=== PATIENT | female | born 1985 | race Caucasian/White ===

== ENCOUNTER 2016-08-19 16:47 | Emergency (ER) | payer BC ==
[2016-08-19 17:14] VITALS: BP 112/80
--- NOTE | 2016-08-19 17:32 | EDM.PDOC ---
ED HPI GENERAL MEDICAL PROBLEM - General Chief Complaint: Lower Extremity Injury/Pain Stated Complaint: INJURED RT LEG Time Seen by Provider: 08/19/16 16:58 Source of Information: Reports: Patient History Limitations: Reports: No Limitations - History of Present Illness INITIAL COMMENTS - FREE TEXT/NARRATIVE: The patient was climbing down an 8 foot high panel and missed one of the foot holds and fell down and landed on her right foot and ankle. She twisted her ankle and fell on her buttocks. She could walk on it initially but the pain has progressively gotten worse where she cannot bear weight on it. Onset: Sudden Duration: Hour(s): Location: Reports: Lower Extremity, Right (foot and ankle) Quality: Reports: Sharp Severity: Moderate Improves with: Reports: None Worsens with: Reports: Movement Context: Reports: Activity Associated Symptoms: Reports: No Other Symptoms Treatments FREIGHT CLAIM INVESTIGATOR: Reports: Other (see below) Other Treatments FREIGHT CLAIM INVESTIGATOR: use ice on- off Right Feet Pain Score (Numeric/FACES): 6 - Related Data Allergies Allergy/AdvReac Type Severity Reaction Status Date / Time eggs Allergy Swelling Uncoded 02/13/14 19:39 Home Meds: Home Meds Ondansetron [Zofran ODT] 4 mg PO Q6H PRN #2 tab.dis 02/13/14 [Rx] Baclofen 10 - 20 mg PO Q6H PRN 08/19/16 [History] DULoxetine [Cymbalta] 120 mg PO BEDTIME 08/19/16 [History] Gabapentin [Neurontin] 1,500 mg PO DAILY 08/19/16 [History] Past Medical History - Past Health History Medical/Surgical History: Denies Medical/Surgical History Musculoskeletal History: Reports: Other (See Below) Other Musculoskeletal History: shoulder repair 3 weeks ago - Past Surgical History Musculoskeletal Surgical History: Reports: Shoulder Surgery Social & Family History - Tobacco Use Smoking Status *Q: Never Smoker Years of Tobacco use: 2 Packs/Tins Daily: 0.1 Second Hand Smoke Exposure: No - Caffeine Use Caffeine Use: Reports: Coffee, Energy Drinks, Soda, Tea - Alcohol Use Days Per Week of Alcohol Use: 0 - Recreational Drug Use Recreational Drug Use: No Review of Systems - Review of Systems Review Of Systems: See Below Constitutional: Reports: No Symptoms Eyes: Reports: No Symptoms Ears: Reports: No Symptoms Nose: Reports: No Symptoms Mouth/Throat: Reports: No Symptoms Respiratory: Reports: No Symptoms Cardiovascular: Reports: No Symptoms GI/Abdominal: Reports: No Symptoms Genitourinary: Reports: No Symptoms Musculoskeletal: Reports: Other (Right ankle and foot pain with edema) ED EXAM, GENERAL - Physical Exam Exam: See Below Exam Limited By: No Limitations General Appearance: Alert, No Apparent Distress Ears: Normal External Exam Nose: Normal Inspection Head: Atraumatic, Normocephalic Neck: Normal Inspection Respiratory/Chest: No Respiratory Distress Extremities: Other (Pain upon palpation to the right ankle and foot. There is ecchymosis and edema to the right lateral foot. Good sensation and pulses distally.) Course - Vital Signs Last Recorded V/S: Last Vital Signs Temp 97.8 F 08/19/16 17:10 Pulse 93 08/19/16 17:10 Resp 20 08/19/16 17:10 BP 112/80 08/19/16 17:10 Pulse Ox 97 08/19/16 17:10 - Orders/Labs/Meds Orders: Active Orders 24 hr Category Date Time Status Ankle Min 3V Rt [CR] Stat Exams 08/19/16 17:27 Taken Foot Comp Min 3V Rt [CR] Stat Exams 08/19/16 17:27 Taken - Re-Assessments/Exams Free Text/Narrative Re-Assessment/Exam: 08/19/16 18:06 There appears to be a small chip fracture off of one of the tarsal bones on the lateral side of her foot. I will put her in a walking boot and crutches. Departure - Departure Time of Disposition: 18:10 Disposition: Home, Self-Care 01 Condition: Good Clinical Impression: Fractured tarsal bone Qualifiers: Encounter type: initial encounter Tarsal bone: unspecified tarsal bone Fracture type: closed Fracture alignment: nondisplaced Laterality: right Qualified Code(s): S92.201A - Fracture of unspecified tarsal bone(s) of right foot, initial encounter for closed fracture Ankle sprain Qualifiers: Encounter type: initial encounter Involved ligament of ankle: unspecified ligament Laterality: right Qualified Code(s): S93.401A - Sprain of unspecified ligament of right ankle, initial encounter - Discharge Information Referrals: Emilie Tello TAP PULLER [Primary Care Provider] - Forms: ED Department Discharge Additional Instructions: Ice your foot and ankle for 15 minutes every other hour while awake for 2 days. Elevate your foot as much as you can for 2 days. Wear your walking boot and use crutches for the 1st week. Follow up with your orthopedic surgeon. Please return if you are worse. - My Orders Last 24 Hours: My Active Orders 08/19/16 17:27 Ankle Min 3V Rt [CR] Stat Foot Comp Min 3V Rt [CR] Stat - Assessment/Plan Last 24 Hours: My Active Orders 08/19/16 17:27 Ankle Min 3V Rt [CR] Stat Foot Comp Min 3V Rt [CR] Stat
--- NOTE | 2016-08-23 13:37 | CR ---
Right foot: 4 views of the right foot were obtained. Comparison: No previous foot study. Minimal calcification is seen off the calcaneus along the lateral side possibly due to small cortical avulsion injury at ligamentous insertion. No additional bony abnormality is seen. Mild soft tissue swelling is present. Impression: 1. Findings suspicious for small cortical avulsion fracture off the lateral calcaneus. 2. Soft tissue swelling. Diagnostic code #3
--- NOTE | 2016-08-23 13:37 | CR ---
Right ankle: 4 portable views of the right ankle were obtained. Comparison: No previous study. Ankle mortise is symmetric. No fracture, dislocation or other bony abnormality is seen. Impression: 1. No abnormality is identified on right ankle exam. Diagnostic code #1
== END 2016-08-19 18:30 | disposition home or self-care (01) ==
LOC: JD.ED 16:47
DX: S92.201A Fracture of unspecified tarsal bone(s) of right foot, initial encounter for closed fracture (principal); S93.401A Sprain of unspecified ligament of right ankle, initial encounter; Z98.890 Other specified postprocedural states; Z79.899 Other long term (current) drug therapy; Z91.012 Allergy to eggs; W17.89XA Other fall from one level to another, initial encounter
CPT/HCPCS: 73610-26-RT; 73610-RT; 73630-26-RT; 73630-RT; 99283

== ENCOUNTER 2016-11-29 12:32 | Emergency (ER) | payer BC ==
[2016-11-29] MEDS ORDERED: HYDROmorphone 1 MG/ML Syringe IM ONE (13:27)
[2016-11-29] MEDS ORDERED: Ketorolac 30 MG/ML SDV IM ONE (13:27)
[2016-11-29] MEDS ORDERED: Diazepam 5 MG Tab PO ONE (13:27)
--- NOTE | 2016-11-29 13:46 | EDM.PDOC ---
ED HPI GENERAL MEDICAL PROBLEM - General Chief Complaint: Neck Problem Stated Complaint: NECK PAIN Time Seen by Provider: 11/29/16 13:15 Source of Information: Reports: Patient History Limitations: Reports: No Limitations - History of Present Illness INITIAL COMMENTS - FREE TEXT/NARRATIVE: 31-year-old female presents for evaluation treatment of neck pain, left arm weakness, numbness and tingling. Patient reports that she has a past medical history of neck and back problems. Reports that she has herniated disc in her neck and her low back. Also reports degenerative disease. Patient reports morning she was carving some pumpkins. Reports that she was cutting off the top of the pumpkin when she felt sudden numbness and tingling into her left arm and severe pain in her neck. She is currently complaining of neck pain across her shoulder blades and down into her left arm towards her elbow. She states that she has still has numbness, tingling and weakness in her left arm. Reports significant pain with any movement of the neck. Patient is in a pain contract. She took her last hydrocodone around 7:30 AM this morning as well as her baclofen and gabapentin. Ports that she normally gets injections in her neck and back. She does this with Dr. Lazo in [place]. She is scheduled next have these on December 07. Patient reports she has not taken any other medications aside from her morning meds. She has been using a topical icy hot-like product to her neck and shoulders without any relief. Repair her primary care provider is Emilie Tello. Most recent MRI we have on file is from May 23, 2013. MRI of the cervical spine. Impression was minimal degenerative change. Patient reports that she has had MRIs in [place] which have shown herniated disc since then. Onset: Today, Sudden Location: Reports: Neck, Upper Extremity, Left Neck Pain Score (Numeric/FACES): 9 - Related Data Allergies Allergy/AdvReac Type Severity Reaction Status Date / Time eggs Allergy Swelling Uncoded 11/29/16 12:40 Home Meds: Home Meds Ondansetron [Zofran ODT] 4 mg PO Q6H PRN #2 tab.dis 02/13/14 [Rx] Baclofen 10 - 20 mg PO Q6H PRN 08/19/16 [History] DULoxetine [Cymbalta] 120 mg PO BEDTIME 08/19/16 [History] Gabapentin [Neurontin] 500 mg PO PCBREAKFAST 08/19/16 [History] Gabapentin [Neurontin] 1,000 mg PO BEDTIME 11/29/16 [History] buPROPion HCl [Wellbutrin Xl] 300 mg PO DAILY 11/29/16 [History] oxyCODONE HCl/Acetaminophen [Percocet 10-325 mg Tablet] 10 - 325 mg PO TID PRN 11/29/16 [History] Past Medical History - Past Health History Medical/Surgical History: Denies Medical/Surgical History Respiratory History: Reports: Asthma Gastrointestinal History: Reports: GERD, Other (See Below) Other Gastrointestinal History: states has ulcers Genitourinary History: Reports: UTI, 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: Musculoskeletal History: Reports: Fracture, Other (See Below) Other Musculoskeletal History: shoulder surgery Psychiatric History: Reports: Anxiety, Depression Hematologic History: Reports: Iron Deficiency Dermatologic History: Reports: Eczema - Infectious Disease History Infectious Disease History: Reports: Chicken Pox - Past Surgical History Musculoskeletal Surgical History: Reports: Shoulder Surgery Social & Family History - Tobacco Use Smoking Status *Q: Never Smoker Years of Tobacco use: 2 Packs/Tins Daily: 0.1 Second Hand Smoke Exposure: No - Caffeine Use Caffeine Use: Reports: Energy Drinks - Alcohol Use Days Per Week of Alcohol Use: 0 - Recreational Drug Use Recreational Drug Use: No ED ROS GENERAL - Review of Systems Review Of Systems: See Below Musculoskeletal: Reports: Neck Pain, Other (decreased ROM due to neck pain). Denies: Back Pain Neurological: Reports: Numbness (left arm), Tingling (left arm), Weakness (left arm) ED EXAM, UPPER BACK/NECK PAIN - Physical Exam Exam: See Below Exam Limited By: No Limitations General Appearance: Alert, WD/WN, Mild Distress Eye Exam: Bilateral Eye: Normal Inspection, PERRL Ears Exam: Normal External Exam Nose Exam: Normal Inspection Throat/Mouth Exam: Normal Inspection, Normal Voice, No Airway Compromise Head Exam: Atraumatic, Normocephalic Neck Exam: Non-Tender, Normal Alignment, Normal Inspection, Limited Range of Motion (unable to flex, extend and rotate neck due to pain), Paraspinous Muscle Tender (left), Spinous Processes Tender Cardiovascular/Respiratory: Regular Rate, Rhythm, No M/R/G Back Exam: Normal Inspection. No: Vertebral Tenderness Extremities: Normal Inspection, Limited Range of Motion (limited ROM to the left arm), Other (hassock maker 4/5 left and 5/5 right, wrist extension 4/5 left and 5/5 right, wrist flexion 4/5 left and 5/5 right) Neurologic: Alert, Sensory Deficit (reports decreased sensation to the left arm) Psychiatric: Normal Affect, Normal Mood Skin Exam: Normal Color, Warm/Dry Course - Vital Signs Last Recorded V/S: Last Vital Signs Temp 36.4 C 11/29/16 12:40 Pulse 81 11/29/16 16:05 Resp 16 11/29/16 16:05 BP 116/69 11/29/16 16:05 Pulse Ox 96 11/29/16 16:05 - Orders/Labs/Meds Meds: Medications Discontinued Medications Generic Name Dose Route Start Last Admin Trade Name Kathleen PRN Reason Stop Dose Admin Diazepam 5 mg 11/29/16 13:27 11/29/16 14:40 Valium. PO 11/29/16 13:28 5 mg ONETIME ONE Administration Hydromorphone HCl 1 mg 11/29/16 13:27 11/29/16 14:32 Dilaudid IM 11/29/16 13:28 1 mg ONETIME ONE Administration Ketorolac Tromethamine 30 mg 11/29/16 13:27 11/29/16 14:34 Toradol IM 11/29/16 13:28 30 mg ONETIME ONE Administration - Radiology Interpretation Free Text/Narrative:: CT of the cervical spine without contrast impression per Dr. Pino 1. Mild degenerative change at C5-C6. This appears fairly stable from prior MRI. 2. Slight scoliosis. 3. No additional abnormality is appreciated on CT study of the cervical spine. - Re-Assessments/Exams Free Text/Narrative Re-Assessment/Exam: 11/29/16 15:[address] results with the patient. No acute abnormality found. Degenerative change and mild diffuse posterior disc bulges seen at C5-C6. When I was reviewing these with her she stated that she does have multiple anchors in her shoulder. She is concerned that these may have come loose. I feel that given her pain starts in her neck she has weakness, numbness and tingling in her arms is most likely from her neck is most likely muscular in origin. I did offer to x-ray her shoulder to see if we find any abnormalities there. She declined. She will wait and see how she does. I did inform her that this should get better with time and her medication she has at home. I will have her follow-up with her primary care provider this week. Discharge instructions as documented. Departure - Departure Time of Disposition: 15:43 Disposition: Home, Self-Care 01 Condition: Fair Clinical Impression: Cervical radiculopathy - Discharge Information Referrals: Emilie Tello SAP HANA DEVELOPER [Primary Care Provider] - Forms: ED Department Discharge Additional Instructions: Continue taking your hydrocodone and baclofen that you have at home. recommend using moist heat to the sore areas 4 or 5 times a day for 20 minutes. Follow-up with your primary care provider this week for recheck of your symptoms. Please return to the ER if your symptoms change or worsen.
--- NOTE | 2016-11-29 14:40 | CT ---
CT cervical spine Technique: Multiple axial sections through the cervical spine were obtained from above C1 inferiorly to the top of T2. Reconstructed sagittal and coronal images were reviewed. Comparison: Previous MRI cervical spine study of 05/23/13 is available. Findings: C1-C2: Unremarkable. C2-C3: Posterior disc appears preserved. No central canal stenosis or neural foraminal stenosis is seen. C3-C4: Posterior disc is preserved. No central canal stenosis or neural foraminal stenosis is seen. C4-C5: Posterior disc appears intact. No central canal stenosis or neural foraminal stenosis is seen. C5-C6: Moderate disc space narrowing is seen. Slight anterior osteophytes are seen as well as posterolateral osteophytes off both sides. Mild diffuse posterior disc bulge is seen. No central canal stenosis or neural foraminal stenosis is seen. C6-C7: Posterior disc is maintained. No central canal stenosis or neural foraminal stenosis is seen. C7-T1: Posterior disc is preserved. No central canal stenosis or neural foraminal stenosis is seen. T1-T2: Posterior disc is preserved. No central canal stenosis or neural foraminal stenosis is seen. No abnormal subluxation is seen. Minimal scoliosis is noted on the reconstructed frontal view. Impression: 1. Mild degenerative change at C5-C6. This appears fairly stable from prior MRI. 2. Slight scoliosis. 3. No additional abnormality is appreciated on CT study of the cervical spine. Diagnostic code #2
[2016-11-29 16:10] VITALS: BP 116/69
== END 2016-11-29 16:05 | disposition home or self-care (01) ==
LOC: JD.ED 12:32
DX: M54.12 Radiculopathy, cervical region (principal); Z79.899 Other long term (current) drug therapy
CPT/HCPCS: 72125; 96372; 99284; A9270; J1170; J1885; 99283